=== PATIENT | male | born 1995 | race Caucasian/White ===

== ENCOUNTER → 2018-04-07 | Outpatient (REF) | payer OTHER ==
[2018-04-07 23:51] LABS: CHLAMYDIA DNA AMPLIFICATION NEGATIVE (NEGATIVE); GC DNA AMPLIFICATION NEGATIVE (NEGATIVE)
== END ==
LOC: M LAB REF 09:14
DX: Z11.3 Encounter for screening for infections with a predominantly sexual mode of transmission (principal)

== ENCOUNTER → 2019-06-02 | Outpatient (REF) | payer OTHER ==
[2019-06-02 23:59] LABS: CHLAMYDIA DNA AMPLIFICATION NEGATIVE (NEGATIVE); GC DNA AMPLIFICATION NEGATIVE (NEGATIVE)
== END ==
LOC: M LAB REF 09:21
PROVIDERS: ATTEND Physician Assistant Medical
DX: Z11.3 Encounter for screening for infections with a predominantly sexual mode of transmission (principal)

== ENCOUNTER 2019-08-12 10:41 | Emergency (ER) | payer OTHER ==
[~2019-08-12] VITALS: Ht 162.6 cm; Wt 66.4 kg
[2019-08-12] MEDS ORDERED: MOBI4TAB PO (12:34)
[2019-08-12 12:40] VITALS: BP 128/78
== END 2019-08-12 12:45 | disposition home or self-care (01) ==
LOC: M ED 10:41
DX: M22.2X2 Patellofemoral disorders, left knee (principal); M22.2X1 Patellofemoral disorders, right knee

== ENCOUNTER → 2019-09-08 | Outpatient (REF) | payer OTHER ==
[~2019-09-08] MED LIST: MOBI4TAB PO
[2019-09-08 21:25] LABS: CHLAMYDIA DNA AMPLIFICATION POSITIVE (NEGATIVE); GC DNA AMPLIFICATION NEGATIVE (NEGATIVE)
== END ==
LOC: M LAB REF 19:20
PROVIDERS: ATTEND Physician Assistant Medical
DX: Z11.3 Encounter for screening for infections with a predominantly sexual mode of transmission (principal)

== ENCOUNTER → 2020-01-15 | Outpatient (REF) | payer OTHER ==
[2020-01-15 22:48] LABS: CHLAMYDIA DNA AMPLIFICATION POSITIVE (NEGATIVE); GC DNA AMPLIFICATION NEGATIVE (NEGATIVE)
== END ==
LOC: M LAB REF 09:05
PROVIDERS: ATTEND Physician Assistant
DX: Z20.2 Contact with and (suspected) exposure to infections with a predominantly sexual mode of transmission (principal)

== ENCOUNTER → 2020-05-14 | Outpatient (REF) | payer OTHER ==
[2020-06-28 10:44] LABS: CHLAMYDIA DNA AMPLIFICATION NEGATIVE (NEGATIVE); GC DNA AMPLIFICATION NEGATIVE (NEGATIVE)
== END ==
LOC: M LAB REF 12:22
PROVIDERS: ATTEND Physician Assistant
DX: Z11.3 Encounter for screening for infections with a predominantly sexual mode of transmission (principal)